=== PATIENT | female | born 1965 | race African-American/Black ===

== ENCOUNTER 2017-01-28 19:01 | Emergency (ER) | payer MEDICAID ==
[~2017-01-28] VITALS: Ht 167.6 cm; Wt 77.0 kg
[2017-01-28] MEDS ORDERED: ALBU6.7H INH (19:39)
[2017-01-28] MEDS ORDERED: ACETAMINOPHEN 325MG TABLET PO ONE (20:30)
[2017-01-28] MEDS ORDERED: PREDNISONE 20MG TABLET PO ONE (20:30)
[2017-01-28] MEDS ORDERED: IPRATROPIUM/ALBUTEROL 0.5-3(2.5)MG/3ML NEB HHN ONE (20:30)
[2017-01-28] MEDS ORDERED: SODIUM CHLORIDE 0.9% 1,000 ML IV ONE (21:30)
[2017-01-28] MEDS ORDERED: BENZONATATE 200MG CAPSULE PO ONE (21:30)
[2017-01-28] MEDS ORDERED: PHENYLEPHRINE HCL 0.5% 15ML NASAL SPRAY BOTHNSTRLS ONE (21:30)
[2017-01-28 21:49] LABS: BASOPHILS % 0.8 % (0.0-2.0); EOSINOPHILS % 1.8 % (0.0-5.0); HEMATOCRIT. 37.4 % (36.0-48.0); HEMOGLOBIN. 12.7 g/dL (12.0-16.0); LYMPHOCYTES % 39.8 % (20.0-50.0); MEAN CORPUSCULAR HEMOGLOBIN 30.4 pg (28.0-32.0); MEAN CORPUSCULAR VOLUME 89.3 fL (81.0-99.0); MEAN PLATELET VOLUME 7.2 fl (7.4-10.4); MONOCYTES % 9.1 % (2.0-8.0); NEUTROPHILS % 48.5 % (40.0-76.0); PLATELET 185 x1000/uL (130-400); RED BLOOD CELL COUNT 4.19 mill/uL (4.2-5.4); RED CELL DISTRIBUTION WIDTH 13.1 % (11.6-14.6); WHITE BLOOD COUNT 6.8 x1000/uL (4.5-11.0)
[2017-01-28 23:41] VITALS: BP 114/57
== END 2017-01-28 23:47 | disposition home or self-care (01) ==
LOC: ER 21:55
DX: J45.901 Unspecified asthma with (acute) exacerbation (principal); R09.81 Nasal congestion
CPT/HCPCS: 36415; 85025; 94640; 96360; 99284; J7030; J7512; Z7610; J7620

== ENCOUNTER 2017-02-12 11:13 | Emergency (ER) | payer MEDICAID ==
[~2017-02-12] VITALS: Ht 167.6 cm; Wt 85.0 kg
[~2017-02-12 11:13] MED LIST: ALBU6.7H INH
[2017-02-12 12:38] VITALS: BP 124/63
== END 2017-02-12 12:39 | disposition home or self-care (01) ==
LOC: ER 11:50
DX: L02.424 Furuncle of left upper limb (principal); J30.9 Allergic rhinitis, unspecified; J45.909 Unspecified asthma, uncomplicated; Z79.899 Other long term (current) drug therapy
CPT/HCPCS: 99283

== ENCOUNTER 2017-03-10 08:16 | Emergency (ER) | payer MEDICAID ==
[~2017-03-10] VITALS: Ht 165.1 cm; Wt 79.0 kg
[2017-03-10] MEDS ORDERED: CETI10TA6 PO (08:49)
[2017-03-10 08:50] VITALS: BP 124/78
== END 2017-03-10 11:50 | disposition home or self-care (01) ==
LOC: ER 10:01
DX: J01.90 Acute sinusitis, unspecified (principal); J06.9 Acute upper respiratory infection, unspecified; J45.909 Unspecified asthma, uncomplicated
CPT/HCPCS: 99283

== ENCOUNTER 2017-06-23 15:27 | Emergency (ER) | payer MEDICAID ==
[~2017-06-23] VITALS: Ht 167.6 cm; Wt 80.0 kg
[~2017-06-23 15:27] MED LIST changes: +CETI10TA6 PO
[2017-06-23] MEDS ORDERED: KETOROLAC 60MG/2ML VIAL IM ONE (17:00)
[2017-06-23 17:21] LABS: BASOPHILS % 0.8 % (0.0-2.0); EOSINOPHILS % 1.5 % (0.0-5.0); HEMATOCRIT. 42.6 % (36.0-48.0); HEMOGLOBIN. 14.7 g/dL (12.0-16.0); LYMPHOCYTES % 30.1 % (20.0-50.0); MEAN CORPUSCULAR VOLUME 90.2 fL (81.0-99.0); MEAN PLATELET VOLUME 6.7 fl (7.4-10.4); MONOCYTES % 6.6 % (2.0-8.0); PLATELET 215 x1000/uL (130-400); RED BLOOD CELL COUNT 4.73 mill/uL (4.2-5.4); RED CELL DISTRIBUTION WIDTH 13.5 % (11.6-14.6)
[2017-06-23 17:28] LABS: INR 0.9; PROTHROMBIN TIME 9.7 sec
[2017-06-23 17:30] LABS: CLARITY URINE CLEAR (CLEAR); COLOR URINE YELLOW (YELLOW); GLUCOSE URINE NEGATIVE (NEGATIVE); KETONES URINE NEGATIVE (NEGATIVE); LEUKOCYTE ESTERASE URINE NEGATIVE (NEGATIVE); NITRITE URINE NEGATIVE (NEGATIVE); OCCULT BLOOD URINE 1+ (NEGATIVE); PROTEIN URINE NEGATIVE (NEGATIVE); SPECIFIC GRAVITY URINE 1.013 (1.005-1.030); UROBILINOGEN URINE 0.2 E.U./dL (0.2-1.0)
[2017-06-23 17:35] LABS: CARBON DIOXIDE 32 mEq/L (21-32); CHLORIDE 101 mEq/L (98-107)
[2017-06-23] MEDS ORDERED: HYDROCODONE/ACETAMINOPHEN 5/325MG TABLET PO NR (21:00)
[2017-06-23 22:36] VITALS: BP 150/76
== END 2017-06-23 22:53 | disposition home or self-care (01) ==
LOC: ER 15:27
DX: R31.9 Hematuria, unspecified (principal); R10.84 Generalized abdominal pain; J45.909 Unspecified asthma, uncomplicated
CPT/HCPCS: 36415; 76770; 80053; 81001; 83690; 85025; 85610; 96372; 99285; J1885

== ENCOUNTER 2017-08-01 11:20 | Emergency (ER) | payer MEDICAID ==
[~2017-08-01] VITALS: Ht 165.1 cm; Wt 79.0 kg
[2017-08-01 11:45] VITALS: BP 136/83
== END 2017-08-01 18:07 | disposition left against medical advice (07) ==
LOC: ER 14:43
DX: Z53.21 Procedure and treatment not carried out due to patient leaving prior to being seen by health care provider (principal)

== ENCOUNTER 2017-09-26 15:50 | Emergency (ER) | payer MEDICAID ==
[~2017-09-26] VITALS: Ht 165.1 cm; Wt 79.0 kg
[2017-09-26] MEDS ORDERED: KETOROLAC 60MG/2ML VIAL IM ONE (19:30)
[2017-09-26 21:49] LABS: CLARITY URINE CLEAR (CLEAR); COLOR URINE YELLOW (YELLOW); GLUCOSE URINE NEGATIVE (NEGATIVE); KETONES URINE NEGATIVE (NEGATIVE); LEUKOCYTE ESTERASE URINE NEGATIVE (NEGATIVE); NITRITE URINE NEGATIVE (NEGATIVE); OCCULT BLOOD URINE TRACE (NEGATIVE); PH URINE 5.5 (4.5-8.0); PROTEIN URINE NEGATIVE (NEGATIVE); SPECIFIC GRAVITY URINE 1.021 (1.005-1.030)
[2017-09-26] MEDS ORDERED: CYCLOBENZAPRINE 10MG TABLET PO ONE (22:45)
[2017-09-26 23:19] VITALS: BP 120/79
== END 2017-09-26 23:20 | disposition home or self-care (01) ==
LOC: ER 16:18
DX: M54.5 Low back pain (principal)
CPT/HCPCS: 72100; 81001; 96372; 99285; J1885

== ENCOUNTER 2017-10-19 12:07 | Emergency (ER) | payer MEDICAID ==
[~2017-10-19] VITALS: Ht 167.6 cm; Wt 79.0 kg
[2017-10-19 12:16] VITALS: BP 113/76
== END 2017-10-19 16:45 | disposition home or self-care (01) ==
LOC: ER 16:31
DX: L30.9 Dermatitis, unspecified (principal); I10 Essential (primary) hypertension; J45.909 Unspecified asthma, uncomplicated
CPT/HCPCS: 99282

== ENCOUNTER 2017-10-31 11:58 | Emergency (ER) | payer MEDICAID ==
[~2017-10-31] VITALS: Ht 167.6 cm; Wt 79.0 kg
[2017-10-31 12:03] VITALS: BP 132/65
[2017-10-31] MEDS ORDERED: DIPHENHYDRAMINE 50MG CAPSULE PO ONE (13:00)
[2017-10-31] MEDS ORDERED: FAMOTIDINE 20MG TABLET PO ONE (13:00)
[2017-10-31] MEDS ORDERED: PREDNISONE 20MG TABLET PO ONE (13:00)
== END 2017-10-31 14:18 | disposition home or self-care (01) ==
LOC: ER 12:44
DX: R21 Rash and other nonspecific skin eruption (principal); J45.909 Unspecified asthma, uncomplicated; M19.90 Unspecified osteoarthritis, unspecified site
CPT/HCPCS: 99283; J7512; Q0163

== ENCOUNTER 2017-11-10 12:33 | Emergency (ER) | payer MEDICAID, OTHER ==
[~2017-11-10] VITALS: Ht 165.1 cm; Wt 80.0 kg
[2017-11-10 17:05] VITALS: BP 135/74
== END 2017-11-10 19:18 | disposition left against medical advice (07) ==
LOC: ER 12:59
DX: R21 Rash and other nonspecific skin eruption (principal); L29.9 Pruritus, unspecified; R09.82 Postnasal drip
CPT/HCPCS: 99281

== ENCOUNTER 2017-12-15 10:32 | Emergency (ER) | payer MEDICAID, OTHER ==
[~2017-12-15] VITALS: Ht 165.1 cm; Wt 73.0 kg
[2017-12-15 13:59] LABS: CLARITY URINE CLEAR (CLEAR); COLOR URINE YELLOW (YELLOW); KETONES URINE NEGATIVE (NEGATIVE); LEUKOCYTE ESTERASE URINE NEGATIVE (NEGATIVE); NITRITE URINE NEGATIVE (NEGATIVE); OCCULT BLOOD URINE TRACE (NEGATIVE); PH URINE 6.5 (4.5-8.0); PROTEIN URINE NEGATIVE (NEGATIVE); SPECIFIC GRAVITY URINE 1.013 (1.005-1.030); UROBILINOGEN URINE 0.2 E.U./dL (0.2-1.0)
[2017-12-15 14:44] LABS: BASOPHILS % 0.4 % (0.0-2.0); EOSINOPHILS % 1.2 % (0.0-5.0); HEMATOCRIT. 39.9 % (36.0-48.0); HEMOGLOBIN. 13.3 g/dL (12.0-16.0); MEAN CORPUSCULAR HEMOGLOBIN 29.5 pg (28.0-32.0); MEAN CORPUSCULAR VOLUME 88.8 fL (81.0-99.0); MEAN PLATELET VOLUME 7.1 fl (7.4-10.4); MONOCYTES % 8.9 % (2.0-8.0); NEUTROPHILS % 50.5 % (40.0-76.0); PLATELET 168 x1000/uL (130-400); RED CELL DISTRIBUTION WIDTH 13.2 % (11.6-14.6)
[2017-12-15 15:02] LABS: CARBON DIOXIDE 29 mEq/L (21-32); CHLORIDE 106 mEq/L (98-107)
[2017-12-15 16:09] VITALS: BP 117/60
== END 2017-12-15 16:11 | disposition home or self-care (01) ==
LOC: ER 12:26
DX: R05 Cough (principal); J45.909 Unspecified asthma, uncomplicated
CPT/HCPCS: 36415; 71045; 80053; 81001; 81025; 85025; 87804; 99285